=== PATIENT | male | born 1935 | race Caucasian/White ===

== ENCOUNTER 2021-01-20 22:21 | Inpatient (IN) | payer OTHER ==
[~2021-01-20] VITALS: Ht 167.6 cm; Wt 74.8 kg
[2021-01-20 23:51] LABS: BUN/CREATININE RATIO 11 (0-10)
[2021-01-21 00:21] LABS: HEMOGLOBIN 13.8 gm/dl (14.0-17.5); RED BLOOD COUNT 4.04 M/UL (4.20-5.50)
[2021-01-24] MEDS ORDERED: CYCLOBENZAPRINE10 MG PO (13:47)
[2021-01-24] MEDS ORDERED: HYDROCODON-ACE1 EAC2 PO (13:47)
--- NOTE | 2021-01-24 18:09 | NUR ---
TELE CALLED AT APPROX 1424 AND NOTIFIED ME THAT THE PATIENTS HEART RATE WAS 140-145 I IMMEDIATELY CALLED MD SANDERS AND WAS INSTRUCTED TO GIVE 1 DOSE OF LOPRESSOR 5MG AND WAIT AND HOUR, IF THE PATIENTS HEART RATE WAS NOT UNDER 100 BPM TO GIVE ANOTHER DOSE OF LOPRESSOR 5MG AND IF THE PATIENTS HEART RATE STAYED UNDER 1OO BPM THEN TO SEND HIM HOME AND FOLLOW UP WITH PCP, AFTER THE FIRST DOSE OF LOPRESSOR THAT PATIENTS HEART RATE WAS STILL 120'S SO I ADMINISTERED THE 2ND DOSE OF LOPRESSOR AND THE PATIENTS HEART RATE WENT TO SINUSE 80'S AND STAYED SINUS 80'S UNTIL DISCHARGE AT 1820, WAS MADE AWARE THAT IT TOOK BOTH DOSES OF LOPRESSOR THE LOWER THE PATIENTS HEART RATE AND STILL WANTED THE PATIENT TO BE SENT HOME. I EDUCATED THE PATIENT ON THE IMPORTANCE OF KEEPING HIS FOLLOW UP APPOINTMENT WITH HIS PCP.
== END 2021-01-24 18:33 | disposition home or self-care (01) | DRG 206 ==
LOC: ER1 22:21 → CDU 01-21 00:43 → M/S 01-21 02:59
PROVIDERS: Physician Assistant; ADMIT Surgery
DX: S27.321A Contusion of lung, unilateral, initial encounter (principal); S22.41XA Multiple fractures of ribs, right side, initial encounter for closed fracture; E78.5 Hyperlipidemia, unspecified; F10.129 Alcohol abuse with intoxication, unspecified; V29.9XXA Motorcycle rider (driver) (passenger) injured in unspecified traffic accident, initial encounter; Y93.89 Activity, other specified; Y92.89 Other specified places as the place of occurrence of the external cause; Y99.8 Other external cause status; Z90.89 Acquired absence of other organs; Z98.890 Other specified postprocedural states; Z80.9 Family history of malignant neoplasm, unspecified
CPT/HCPCS: 70450; 71045; 71260; 72125; 72128; 72131; 80053; 81001; 84484; 85025; 86850; 86900; 86901; 93005; 94640; 94760; 96374; 96375; 97116-GP-CQ; 97161; 99285; G0480; J2270; J2405; J3411; J3475; J7030; Q9967; U0002